=== PATIENT | female | born 1985 | race American Indian/Alaskan Native ===

== ENCOUNTER 2019-05-30 19:47 | Emergency (ER) | payer SELFPAY ==
--- NOTE | 2019-05-30 20:23 | Emergency Department Report ---
Blank Doc - Documentation Documentation: This is a 33-year-old female that presents with generalized pain and SOB. This initial assessment/diagnostic orders/clinical plan/treatment(s) is/are subject to change based on patient's health status, clinical progression and re- assessment by fellow clinical providers in the ED. Further treatment and workup at subsequent clinical providers discretion. Patient/guardians urged not to elope from the ED as their condition may be serious if not clinically assessed and managed. Initial orders include: 1- Patient sent to main ed for further evaluation and treatment 2- labs 3- EKG 4- CXR
[2019-05-30 20:55] LABS: Basophils # (Auto) 0.1 K/mm3 (0.0-0.1); Basophils % (Auto) 2.1 % (0.0-1.8); Eosinophils # (Auto) 0.1 K/mm3 (0.0-0.4); Hematocrit 37.8 % (30.3-42.9); Hemoglobin 12.7 gm/dl (10.1-14.3); Lymphocytes # (Auto) 1.1 K/mm3 (1.2-5.4); Lymphocytes % (Auto) 37.3 % (13.4-35.0); Mean Corpuscular HGB Conc 34 % (30-34); Mean Corpuscular Volume 93 fl (79-97); Monocytes # (Auto) 0.4 K/mm3 (0.0-0.8); Monocytes % (Auto) 14.6 % (0.0-7.3); Platelet Count 235 K/mm3 (140-440); Red Blood Count 4.07 M/mm3 (3.65-5.03); Red Cell Distribution Width 13.3 % (13.2-15.2)
--- NOTE | 2019-05-30 21:05 | Emergency Department Report ---
ED General Adult HPI - General Chief complaint: Pain General Stated complaint: SHORTNESS OF BREATH, INSOMNIA, BODY PAIN Time Seen by Provider: 05/30/19 20:22 Source: patient Mode of arrival: Ambulatory Limitations: No Limitations - History of Present Illness Initial comments: Patient is a 33-year-old female that presents to emergency room with multiple complaints. Patient states she is having generalized pain from a lupus flare up. Patient states because of the pain 7 difficulty sleeping. Patient complains of chest pain and shortness of breath. Patient states her breasts due to having so much pain. Patient denies difficulty in breathing on exertion. Patient states the pain is better with rest and worse with movement or palpation/. Patient states her pain has been going on for 3 weeks and has been worsening. Patient states she ran out of her medications 3 weeks ago. -: Gradual Location: chest, back, upper extremity, lower extremity Severity scale (0 -10): 10 Quality: stabbing Consistency: constant Improves with: rest Worsens with: movement Associated Symptoms: chest pain, loss of appetite, malaise, shortness of breath. denies: confusion, diaphoresis, fever/chills, headaches, nausea/vomiting, rash, seizure, syncope, weakness Treatments Prior to Arrival: none - Related Data Previous Rx's Medication Instructions Recorded Last Taken Type Ciprofloxacin HCl [Ciprofloxacin 500 mg PO Q12HR 10 Days #20 tab 05/31/19 Unknown Rx TAB] HYDROcodone/APAP 5-325 [[place] 1 each PO Q4HR PRN #12 tablet 05/31/19 Unknown Rx 5/325] methylPREDNISolone [Medrol 4MG 4 mg PO DAILY 6 Days #1 tab.ds.pk 05/31/19 Unknown Rx DOSEPAK (21 tabs)] Allergies Allergy/AdvReac Type Severity Reaction Status Date / Time codeine Allergy Swelling Verified 05/30/19 20:25 Sulfa (Sulfonamide Allergy Swelling Verified 05/30/19 20:25 Antibiotics) NSAIDS Allergy Swelling Uncoded 05/30/19 20:25 ED Review of Systems ROS: Stated complaint: SHORTNESS OF BREATH, INSOMNIA, BODY PAIN Other details as noted in HPI Constitutional: denies: chills, fever Eyes: denies: eye pain, eye discharge, vision change ENT: denies: ear pain, throat pain Respiratory: shortness of breath. denies: cough, wheezing Cardiovascular: chest pain. denies: palpitations Endocrine: no symptoms reported Gastrointestinal: denies: abdominal pain, nausea, diarrhea Genitourinary: dysuria. denies: urgency, discharge Musculoskeletal: back pain, arthralgia, myalgia. denies: joint swelling Skin: denies: rash, lesions Neurological: denies: headache, weakness, paresthesias Psychiatric: denies: anxiety, depression Hematological/Lymphatic: denies: easy bleeding, easy bruising ED Past Medical Hx - Past Medical History Previous Medical History?: Yes Additional medical history: LUPUS - Surgical History Past Surgical History?: Yes Additional Surgical History: X1, 2011 - Social History Smoking Status: Former Smoker Substance Use Type: None - Medications Home Medications: Home Medications Medication Instructions Recorded Confirmed Last Taken Type Ciprofloxacin HCl [Ciprofloxacin 500 mg PO Q12HR 10 Days #20 tab 05/31/19 Unknown Rx TAB] HYDROcodone/APAP 5-325 [[place] 1 each PO Q4HR PRN #12 tablet 05/31/19 Unknown Rx 5/325] methylPREDNISolone [Medrol 4MG 4 mg PO DAILY 6 Days #1 tab.ds.pk 05/31/19 Unknown Rx DOSEPAK (21 tabs)] ED Physical Exam - General Limitations: No Limitations General appearance: alert, in no apparent distress - Head Head exam: Present: atraumatic, normocephalic - Eye Eye exam: Present: normal appearance, PERRL Pupils: Present: normal accommodation - ENT ENT exam: Present: mucous membranes moist - Neck Neck exam: Present: normal inspection - Respiratory Respiratory exam: Present: normal lung sounds bilaterally, chest wall tenderness. Absent: respiratory distress, wheezes, rales - Cardiovascular Cardiovascular Exam: Present: regular rate, normal rhythm. Absent: systolic murmur, diastolic murmur, rubs, gallop - GI/Abdominal GI/Abdominal exam: Present: soft, normal bowel sounds - Rectal Rectal exam: Present: deferred - Extremities Exam Extremities exam: Present: normal inspection - Back Exam Back exam: Present: normal inspection - Neurological Exam Neurological exam: Present: alert, oriented X3 - Psychiatric Psychiatric exam: Present: normal affect, normal mood - Skin Skin exam: Present: warm, dry, intact, normal color. Absent: rash ED Course Vital Signs 05/30/19 05/30/19 05/30/19 20:25 21:00 21:22 Temperature 99.5 F 98.4 F Pulse Rate 86 71 71 Respiratory 20 12 15 Rate Blood Pressure 137/80 134/88 Blood Pressure 126/82 [Left] O2 Sat by Pulse 99 100 100 Oximetry 05/30/19 05/30/19 22:01 23:02 Temperature Pulse Rate 83 Respiratory 13 Rate Blood Pressure 138/81 138/81 Blood Pressure [Left] O2 Sat by Pulse 91 98 Oximetry - Reevaluation(s) Reevaluation #1: Patient states her pain is better. Patient will be given another dose of pain medications and IV fluids. 05/30/19 22:40 Reevaluation #2: Patient states her pain has resolved. Discussed all results with patient. Patient is stable for discharge. Patient will be discharged home. Patient agrees to plan of care. Patient given discharge instructions. Patient voiced understanding of discharge instructions. 05/31/19 00:09 ED Medical Decision Making - Lab Data Result diagrams: 05/30/19 20:39 05/30/19 20:39 - EKG Data -: EKG Interpreted by Ia EKG shows normal: sinus rhythm, axis, intervals, QRS complexes, ST-T waves Rate: normal - Radiology Data Radiology results: report reviewed CHEST PA AND LATERAL VIEWS INDICATION: Chest Pain. COMPARISON: None. FINDINGS: Support devices: None. Heart: Within normal limits. Lungs/Pleura: No acute pulmonary or pleural findings. IMPRESSION: 1. No significant abnormality. - Medical Decision Making Patient is a 33-year-old female that presents emergency room with complaints of generalized pain, chest pain, shortness of breath. Patient has history of lupus. Pain secondary to lupus. Patient's pain has been going on for 3 weeks since she stopped her lupus medications. Patient given her medications and fluids as well as Medrol and her pain improved. Patient's EKG negative. Patient's labs unremarkable except for UTI. Patient given Rocephin. Patient discharged home with prescriptions. Patient given discharge instructions. - Differential Diagnosis Lupus. Generalized pain. Chronic pain. Lupus flareup. Myalgia. UTI Critical care attestation.: If time is entered above; I have spent that time in minutes in the direct care of this critically ill patient, excluding procedure time. ED Disposition Clinical Impression: Generalized pain, Dysuria, Myalgia Lupus (systemic lupus erythematosus) Qualifiers: Systemic lupus erythematosus type: unspecified Systemic lupus erythematosus organ involvement: unspecified Qualified Code(s): M32.9 - Systemic lupus erythematosus, unspecified Arthralgia Qualifiers: Joint pain location: unspecified Qualified Code(s): M25.50 - Pain in unspecified joint UTI (urinary tract infection) Qualifiers: Urinary tract infection type: site unspecified Hematuria presence: with hematuria Qualified Code(s): N39.0 - Urinary tract infection, site not specified Disposition: TO HOME OR SELFCARE Is pt being admited?: No Does the pt Need Aspirin: No Condition: Stable Instructions: Urinary Tract Infection in Women (ED), Dysuria (ED) Additional Instructions: Patient to follow-up with primary care in 2-3 days. Patient to take Tylenol or ibuprofen when necessary for pain. Patient to return to ER if condition worsens. Patient to take meds as directed. Patient to increase water. Patient to rest. Patient to follow up with developmental mathematics professor in 2-3 days.. Prescriptions: Ciprofloxacin HCl [Ciprofloxacin TAB] 500 mg PO Q12HR 10 Days #20 tab methylPREDNISolone [Medrol 4MG DOSEPAK (21 tabs)] 4 mg PO DAILY 6 Days #1 tab.ds.pk HYDROcodone/APAP 5-325 [[place] 5/325] 1 each PO Q4HR PRN #12 tablet PRN Reason: Pain Referrals: KATHLEEN DOWNEY MD [Primary Care Provider] - 2-3 Days Forms: Work/School Release Form(ED) Time of Disposition: 00:14
[2019-05-30] MEDS ORDERED: DILAUDID IV ONE ×2 (21:24→22:42)
[2019-05-30] MEDS ORDERED: SOLU-Medrol IV ONE (21:24)
[2019-05-30 21:35] LABS: BUN/Creatinine Ratio 21; Blood Urea Nitrogen 15 mg/dL (7-17); Calcium 9.6 mg/dL (8.4-10.2); Hemolysis Index 7
[2019-05-30 21:42] LABS: Creatine Kinase MB 2.2 ng/mL (0.0-4.0)
[2019-05-30] MEDS ORDERED: NACL 0.9% 1000 ML 1,000 ML IV ONE (22:42)
--- NOTE | 2019-05-30 23:17 | XRay Report ---
CHEST PA AND LATERAL VIEWS INDICATION: Chest Pain. COMPARISON: None. FINDINGS: Support devices: None. Heart: Within normal limits. Lungs/Pleura: No acute pulmonary or pleural findings. IMPRESSION: 1. No significant abnormality. Signer Name: Harsh Mark MD Signed: 05/30/2019 11:13 PM Workstation Name: [id number]
[2019-05-30 23:55] LABS: Bilirubin,Urine NEG (Negative); Blood,Urine NEG (Negative); Color,Urine Amber (Yellow); Mucus,Urine 3+ /HPF
[2019-05-31 00:02] LABS: WBC,Urine > 182.0 /HPF (0.0-6.0)
[2019-05-31] MEDS ORDERED: ROCEPHIN/NS 1 GM/50 ML 1 GM/50 ML BAG IV ONE (00:09)
[2019-05-31 00:46] VITALS: BP 138/81
== END 2019-05-31 01:05 | disposition home or self-care (01) ==
LOC: ED 19:47
DX: N39.0 Urinary tract infection, site not specified (principal); M32.9 Systemic lupus erythematosus, unspecified; M25.50 Pain in unspecified joint; Z88.2 Allergy status to sulfonamides; Z88.8 Allergy status to other drugs, medicaments and biological substances
CPT/HCPCS: 36415; 71046; 80048; 81001; 82550; 82553; 84484; 84703; 85025; 93005; 93010; 96365; 96375; 96376; 99284; J0696; J1170; J2930; J7030

== ENCOUNTER 2019-06-16 11:55 | Emergency (ER) | payer SELFPAY ==
[2019-06-16 12:03] VITALS: BP 171/92
--- NOTE | 2019-06-16 12:03 | Event Note ---
Date: 06/16/19 h/o SLE and bipolar, visiting from [place], has been without psych and lupus meds for 3 days. Having pain and jean-paul. no fever, chills or night sweats. denies drugs or alcohol use. denies S.I, H.I.
[2019-06-16 12:31] LABS: Hematocrit 34.8 % (30.3-42.9); Hemoglobin 11.7 gm/dl (10.1-14.3); Mean Corpuscular HGB Conc 34 % (30-34); Mean Corpuscular Volume 92 fl (79-97); Platelet Count 240 K/mm3 (140-440); Red Cell Distribution Width 13.3 % (13.2-15.2)
[2019-06-16 12:46] LABS: Alanine Aminotransferase 29 units/L (7-56); Albumin 4.8 g/dL (3.9-5); BUN/Creatinine Ratio 26; Blood Urea Nitrogen 18 mg/dL (7-17); Calcium 9.6 mg/dL (8.4-10.2); Hemolysis Index 21
[2019-06-16] MEDS ORDERED: ZOFRAN IM ONE (12:53)
[2019-06-16] MEDS ORDERED: SUBLIMAZE IM ONE (12:53)
[2019-06-16] MEDS ORDERED: LIDOCAINE VISCOUS 2% PO ONE ×2 (12:54→15:37)
--- NOTE | 2019-06-16 13:00 | Emergency Department Report ---
HPI - General Chief Complaint: Pain General Time Seen by Provider: 06/16/19 12:06 - HPI HPI: Room 13 The patient is 33-year-old female presenting with a chief complaint of lupus and mild pain. The patient states she's had sores in her mouth for past 3 days. Patient also complains of "whole body pain from her lupus flare. The patient states whenever her lupus flares up she sores in mouth. The patient gives her pain a score of 10/10 Location: [See above] Duration: [See above] Quality: [See above] Severity: [See above] Modifying factors: [see above] Context: [see above] Mode of transportation: [not driving] ED Past Medical Hx - Past Medical History Previous Medical History?: Yes Hx Psychiatric Treatment: Yes (bipolar disorder, schizophrenia) Additional medical history: LUPUS - Surgical History Past Surgical History?: Yes Additional Surgical History: , 2011 - Family History Family history: no significant - Social History Smoking Status: Never Smoker Substance Use Type: None - Medications Home Medications: Home Medications Medication Instructions Recorded Confirmed Last Taken Type Ciprofloxacin HCl [Ciprofloxacin 500 mg PO Q12HR 10 Days #20 tab 05/31/19 06/16/19 Unknown Rx TAB] Dapsone 100 mg DAILY 06/16/19 06/16/19 Unknown History HYDROcodone/APAP 5-325 [[place] 1 - 2 each PO Q6HR PRN #20 tablet 06/16/19 Unknown Rx 5/325] HYDROcodone/APAP 5-325 [[place] 10 mg PO Q4HR PRN 06/16/19 06/16/19 Unknown History 5/325] Hydroxychloroquine [Plaquenil] 400 mg PO QDAY 06/16/19 06/16/19 Unknown History Leucovorin (Nf) 25 mg PO DAILY 06/16/19 06/16/19 Unknown History Olanzapine 20 mg PO DAILY 06/16/19 06/16/19 Unknown History Percocet 10/325 mg 10 mg PO Q4-6H PRN 06/16/19 06/16/19 Unknown History Prednisone [predniSONE 10 mg 10 mg PO .TAPER #1 tab.ds.pk 06/16/19 Unknown Rx (6-Day Pack, 21 Tabs)] Sucralfate [Carafate] 1 gm PO Q6HR #400 ml 06/16/19 Unknown Rx Wellbutrin 100 mg PO DAILY 06/16/19 06/16/19 Unknown History diazePAM TAB [Valium] 10 mg PO DAILY 06/16/19 06/16/19 Unknown History methylPREDNISolone [Medrol 4MG 10 mg PO DAILY PRN 06/16/19 06/16/19 Unknown History DOSEPAK (21 tabs)] ED Review of Systems ROS: Stated complaint: LUPUS Other details as noted in HPI Constitutional: no symptoms reported Eyes: denies: eye pain ENT: throat pain Respiratory: no symptoms reported Cardiovascular: denies: chest pain Endocrine: no symptoms reported Gastrointestinal: denies: abdominal pain Genitourinary: denies: dysuria Musculoskeletal: arthralgia Neurological: denies: headache Physical Exam - Physical Exam Vital Signs: Vital Signs 06/16/19 12:01 Temperature 97.4 F L Pulse Rate 118 H Respiratory 20 Rate Blood Pressure 171/92 O2 Sat by Pulse 100 Oximetry Physical Exam: GENERAL: The patient is well-developed well-nourished female lying on stretcher appearing slightly anxious. [] HEENT: Normocephalic. Atraumatic. Subacute appearing healing fissures on lips. One aphthous ulcer visualized on the inferior aspect of the left tongue NECK: Supple. Trachea midline CHEST/LUNGS: Clear to auscultation. There is no respiratory distress noted. HEART/CARDIOVASCULAR: Regular. There is no tachycardia. There is no gallop rub or murmur. ABDOMEN: Abdomen is soft, nontender. Patient has normal bowel sounds. There is no abdominal distention. SKIN: There is no rash. There is no edema. There is no diaphoresis. NEURO: The patient is awake, alert, and oriented. The patient is cooperative. The patient has normal speech and gait. MUSCULOSKELETAL: There is no evidence of acute injury. ED Course Vital Signs 06/16/19 12:01 Temperature 97.4 F L Pulse Rate 118 H Respiratory 20 Rate Blood Pressure 171/92 O2 Sat by Pulse 100 Oximetry ED Medical Decision Making - Lab Data Result diagrams: 06/16/19 12:08 06/16/19 12:08 Critical care attestation.: If time is entered above; I have spent that time in minutes in the direct care of this critically ill patient, excluding procedure time. ED Disposition Clinical Impression: Aphthous stomatitis, Lupus Is pt being admited?: No Does the pt Need Aspirin: No Condition: Stable Instructions: Canker Sores (ED) Additional Instructions: Return to the emergency department immediately should you develop worsening symptoms, fever, inability to tolerate food or liquid or any other concerns. Prescriptions: Sucralfate [Carafate] 1 gm PO Q6HR #400 ml HYDROcodone/APAP 5-325 [[place] 5/325] 1 - 2 each PO Q6HR PRN #20 tablet PRN Reason: Pain Prednisone [predniSONE 10 mg (6-Day Pack, 21 Tabs)] 10 mg PO .TAPER #1 tab.ds.pk Referrals: [facility] [Outside] - 3-5 Days [facility] [Outside] - 3-5 Days MY JONES MD [Staff Physician] - [facility] (Dr Jones is an customer service associate (ear nose and throat doctor). Please follow up with her for further evaluation)
[2019-06-16] MEDS ORDERED: ATIVAN PO ONE (15:29)
[2019-06-16] MEDS ORDERED: NORCO 5/325 PO PRN (15:56)
[2019-06-16] MEDS ORDERED: CARAFATE PO PRN (15:57)
[2019-06-16] MEDS ORDERED: SOLU-Medrol IM ONE (15:57)
[2019-06-16 17:44] LABS: Benzodiazepines Screen,Urine PRESUMPTIVE NEGATIVE; Cocaine Screen,Urine PRESUMPTIVE NEGATIVE; Methadone Screen,Urine PRESUMPTIVE NEGATIVE; Opiate Screen,Urine PRESUMPTIVE NEGATIVE
[2019-06-16 18:06] LABS: Amphetamine Screen,Urine PRESUMPTIVE POSITIVE; Cannabinoid Screen,Urine PRESUMPTIVE POSITIVE
[2019-06-16 18:07] LABS: HCG Qualitative,Urine Negative (Negative)
[2019-06-16 18:08] LABS: Bilirubin,Urine NEG (Negative); Blood,Urine LG (Negative); Color,Urine Amber (Yellow); Urobilinogen,Urine < 2.0 mg/dL (<2.0)
[2019-06-16 18:09] LABS: Mucus,Urine 3+ /HPF
== END 2019-06-16 19:06 | disposition home or self-care (01) ==
LOC: ED 11:55
DX: K12.0 Recurrent oral aphthae (principal); M32.9 Systemic lupus erythematosus, unspecified; F31.9 Bipolar disorder, unspecified; F20.9 Schizophrenia, unspecified; Z79.899 Other long term (current) drug therapy; Z88.6 Allergy status to analgesic agent; Z88.2 Allergy status to sulfonamides; Z88.8 Allergy status to other drugs, medicaments and biological substances
CPT/HCPCS: 36415; 80053; 80307; 81001; 81025; 85027; 87086; 96372; 99284; J2405; J2930; J3010; 80320; G0480